=== PATIENT | female | born 1985 | race Asian ===

== ENCOUNTER 2016-11-18 14:53 | Emergency (ER) | payer OTHER ==
[~2016-11-18] VITALS: Ht 162.6 cm; Wt 72.5 kg
[2016-11-18 14:58] VITALS: Ht 162.6 cm; Wt 72.5 kg
[2016-11-18] MEDS ORDERED: CETI10CA PO (15:16)
[2016-11-18] MEDS ORDERED: PRED20TA PO (15:16)
[2016-11-18] MEDS ORDERED: BEN25 PO (15:16)
--- NOTE | 2016-11-18 15:21 | ERA ---
ER Documentation Chief Complaint Date/Time DATE: 11/18/16 TIME: 15:17 Chief Complaint GENERALIZED RASH WITH WELTS X 3 DAYS HPI Patient is a 31-year-old female who presents to the emergency department with a generalized rash throughout her body. Patient states rash started 3 days ago after going out to eat dinner at [employer]. Patient is unsure if she ate something at the restaurant. Patient states that she also started using a new body wash approximately 1 week ago. Patient has been taking Benadryl which does help with her symptoms. Patient describes a rash to be erythematous, circular and throughout her body. Patient reports that the rash is itchy. Patient denies any throat swelling, tongue swelling, lip swelling, fever, chills , nausea, vomiting, loss consciousness. She denies any chest pain or shortness of breath. ROS All systems reviewed and are negative except as per history of present illness. Medications Home Meds Active Scripts Diphenhydramine Hcl* (Benadryl*) 25 Mg Cap, 25 MG PO Q6, #30 CAP Prov:LAVON COX PA-C 11/18/16 Cetirizine Hcl* (Zyrtec*) 10 Mg Capsule, 10 MG PO DAILY, #20 TAB.CHEW Prov:LAVON COX PA-C 11/18/16 Prednisone* (Prednisone*) 20 Mg Tab, 40 MG PO DAILY for 5 Days, TAB Prov:LAVON COX PA-C 11/18/16 Allergies Allergies: Coded Allergies: No Known Allergy (Unverified , 08/04/14) PMhx/Soc Medical and Surgical Hx: pt denies Medical Hx, pt denies Surgical Hx History of Surgery: No Anesthesia Reaction: No Hx Neurological Disorder: No Hx Respiratory Disorders: No Hx Alcohol Use: No Hx Substance Use: No Hx Tobacco Use: No Smoking Status: Never smoker Physical Exam Vitals Vital Signs Date Time Temp Pulse Resp B/P Pulse Ox O2 Delivery O2 Flow Rate FiO2 11/18/16 14:58 99.0 88 16 144/92 99 Physical Exam GENERAL: Well-developed, well-nourished female. Appears in no acute distress. Begin full sentences HEAD: Normocephalic, atraumatic. No deformities or ecchymosis. EYE: Pupils equal, round, and reactive to light. EOMs intact. No conjunctival erythema. No eye discharge. ENT: External ear without any masses or tenderness. Auditory canals clear bilaterally. TM visualized bilaterally, non-erythematous, non-bulging. Nasal mucosa pink with no discharge. Oropharynx is pink without any tonsillar erythema or exudates. No uvula deviation. No kissing tonsils. No lip swelling, no tongue swelling, no throat swelling. NECK: Supple. No meningismus. Normal ROM of the neck. LUNG: Clear to auscultation bilaterally. No rhonchi, wheezing, rales or coarse breath sounds. No stridor. HEART: Regular rate and rhythm. No murmurs, rubs or gallops. BACK: No midline tenderness. EXTREMITES: Equal pulses bilaterally. No peripheral clubbing, cyanosis or edema. No unilateral leg swelling. NEUROLOGIC: Alert and oriented to person, place and time. Moving all four extremities. 5/5 strength in all extremities. Normal speech. Steady gait. SKIN: Normal color. Warm and dry. Erythematous, urticarial-like rash noted throughout the patient's upper arms, abdomen, upper legs. Procedures/MDM MEDICAL DECISION MAKING: This is a 31-year-old female presents with a generalized body rash 3 days. Vital signs were reviewed. Patient was afebrile. Patient is not diabetic. Skin exam revealed urticarial rash throughout the patient's body. She denies any lip swelling, tongue swelling, throat swelling or difficulty breathing. Patient was speaking in full sentences. Given these findings, the patient's presentation is most consistent with allergic reaction and hives. I have a much lower clinical concern for necrotizing fasciitis, sepsis, gangrene, Jordan- Ariel syndrome, toxic epidural necrolysis, abscess, cellulitis, herpes zoster , viral exanthem, anaphylaxis, fungal infection, insect bite, impetigo, dermatitis. PRESCRIPTIONS: Prednisone, Zyrtec, Benadryl DISCHARGE: At this time, patient is stable for discharge and outpatient management. I have advised the patient to avoid any new products, creams or possible allergens. I have advised the patient to avoid scratching the lesions. I have instructed the patient to follow-up with his/her primary care physician in 1-2 days. If symptoms persist, patient may need to see a echocardiograph tech for further examinations and testing. I have instructed the patient to promptly return to the ER at any time for any new or worsening symptoms including increased pain, fever, redness, swelling, warmth, difficulty breathing or vomiting. The patient and/or family expressed understanding of and agreement with this plan. All questions were answered. Home care instructions were provided. Departure Diagnosis: Primary Impression: Rash Condition: Stable Patient Instructions: Self-Care for Skin Rashes Referrals: DOCTOR,NOT ON STAFF (PCP) Additional Instructions: Call your primary care doctor TOMORROW for an appointment during the next 1-2 days.See the doctor sooner or return here if your condition worsens before your appointment time. Return the emergency department for any shortness of breath, chest tightness, throat swelling, lip swelling, tongue swelling or loss of consciousness. LAVON COX PA-C Nov 18, 2016 15:21
== END 2016-11-18 15:56 | disposition home or self-care (01) ==
LOC: FTE 14:53
DX: R21 Rash and other nonspecific skin eruption (principal)
CPT/HCPCS: 99283

== ENCOUNTER 2017-08-04 08:05 | Emergency (ER) | payer OTHER ==
[~2017-08-04] VITALS: Wt 76.7 kg
[~2017-08-04 08:05] MED LIST: BEN25 PO; CETI10CA PO; PRED20TA PO
[2017-08-04] MEDS ORDERED: IBUPROFEN 600 MG TAB PO ONE (08:30)
--- NOTE | 2017-08-04 08:36 | RADRPT ---
PROCEDURE: XR Chest. CLINICAL INDICATION: Cough, fever, chest pain TECHNIQUE: Single frontal view of the chest was obtained COMPARISON: None FINDINGS: The heart and mediastinum are within normal limits. The lungs are clear. There is no pleural effusion or pneumothorax. The bones and soft tissue show no acute change. IMPRESSION: No definite abnormalities are identified. RPTAT:AAJJ Physician Reji Date Time Electronically viewed and signed by Christiano Pacheco Physician on 08/04/2017 08:35 /
--- NOTE | 2017-08-04 08:41 | ERD ---
ER Documentation Chief Complaint Chief Complaint FLU-LIKE SYMPTOMS, ONSET 2 DAYS HPI 32-year-old female comes in with 2 day history of cough, sore throat, nasal congestion and headache. The patient reports that she has had a productive cough, sore throat, nasal rhinorrhea with a frontal headache. She describes her symptoms to wax and wane and also reports pleuritic chest pain in the center. She states that the pain is sharp, notices when she takes a deep breath in or out, or when she is coughing. She has not had any syncope, and dizziness, shortness of breath. ROS All systems reviewed and are negative except as per history of present illness. Medications Home Meds Active Scripts Oseltamivir Phosphate* (Tamiflu*) 75 Mg Capsule, 75 MG PO BID for 5 Days, CAP Prov:BATOOL IYER PA-C 08/04/17 Guaifenesin/Codeine Phosphate (CHERATUSSIN AC SYRUP) 118 Ml Liquid, 5 ML PO Q4H Y for COUGH, #118 ML Prov:BATOOL IYER PA-C 08/04/17 Cetirizine Hcl* (Zyrtec*) 10 Mg Capsule, 10 MG PO DAILY, #10 TAB.CHEW Prov:BATOOL IYER PA-C 08/04/17 Fluticasone Propionate (Flonase Allergy Relief) 9.9 Ml [place].susp, 1 SPRAY NASAL BID, #1 BOTTLE TO EACH NOSTRIL Prov:BATOOL IYER PA-C 08/04/17 Ibuprofen* (Motrin*) 600 Mg Tab, 600 MG PO Q6, #30 TAB Prov:BATOOL IYER PA-C 08/04/17 Diphenhydramine Hcl* (Benadryl*) 25 Mg Cap, 25 MG PO Q6, #30 CAP Prov:LAVON COX PA-C 11/18/16 Cetirizine Hcl* (Zyrtec*) 10 Mg Capsule, 10 MG PO DAILY, #20 TAB.CHEW Prov:LAVON COX PA-C 11/18/16 Prednisone* (Prednisone*) 20 Mg Tab, 40 MG PO DAILY for 5 Days, TAB Prov:LAVON COX PA-C 11/18/16 Allergies Allergies: Coded Allergies: No Known Allergy (Unverified , 08/04/14) PMhx/Soc Medical and Surgical Hx: pt denies Medical Hx, pt denies Surgical Hx History of Surgery: No Anesthesia Reaction: No Hx Neurological Disorder: No Hx Respiratory Disorders: No Hx Alcohol Use: No Hx Substance Use: No Hx Tobacco Use: No Physical Exam Vitals Vital Signs Date Time Temp Pulse Resp B/P Pulse Ox O2 Delivery O2 Flow Rate FiO2 08/04/17 09:27 101.0 100 08/04/17 08:47 103.2 118 22 97 Room Air 08/04/17 08:07 101.6 111 18 137/81 98 Physical Exam General: Well-developed, well-nourished. The patient appears in no acute distress. HEENT: Head is normocephalic, atraumatic. No scleral icterus. Pupils are equal , round, and reactive. Oral mucous membranes are moist. No pharyngeal erythema. Neck: Supple. Nontender. Lungs: Clear to auscultation. Normal air movement. Patient has sternal chest pain with chest wall palpation. Heart: Regular rate and rhythm. S1 and S2 are normal. No murmurs, gallops, or rubs. Abdomen: Soft, nontender, nondistended. Bowel sounds are normoactive. Extremities: No clubbing or cyanosis. Normal pulses. Moving extremities x 4. No weakness. Neurologic: Alert and oriented 3. No focal deficits. Skin: Normal turgor. No rash or lesions. Results 24 hrs Current Medications Medications (Trade) Dose Ordered Sig/Randy Route PRN Reason Start Time Stop Time Status Last Admin Dose Admin Ibuprofen (Motrin) 600 mg ONCE ONCE PO 08/04/17 08:30 08/04/17 08:31 DC 08/04/17 08:18 Acetaminophen (Tylenol Tab) 1,000 mg ONCE STAT PO 08/04/17 08:46 08/04/17 08:47 DC 08/04/17 08:51 Chest X-ray 1V Interpreted by me as well as radiologist: Soft Tissue: No acute abnormalities Bones: No acute abnormalities Mediastinum/Cardiac Silhouette/Lungs: No acute abnormalities Procedures/MDM The patient is a 32-year-old female who comes in with a viral syndrome. The patient has a fever, cough, sore throat, chest x-ray is normal. The chest pain is reproduced when I palpate over chest wall, without pneumonia, pneumothorax, osteomyelitis, endocarditis, myocarditis, pericarditis. The patient has a differential diagnosis of a viral upper respiratory infection, bacterial upper respiratory infection, bronchitis, pneumonia, pharyngitis, laryngitis, epiglottitis, croup, pneumonia. Patient has a normal pulmonary examination, clear breath sounds, normal pulse oximetry, with no corrective measures needed at this time. Fluids, rest, antipyretics were encouraged. Departure Diagnosis: Primary Impression: Influenza-like symptoms Condition: Good BATOOL IYER PA-C Aug 04, 2017 08:41
[2017-08-04] MEDS ORDERED: FLUT9.9S NASAL (08:42)
[2017-08-04] MEDS ORDERED: GUAI118L22 PO (08:42)
[2017-08-04] MEDS ORDERED: IBUP-1542 PO (08:42)
[2017-08-04] MEDS ORDERED: CETI10CA PO (08:42)
[2017-08-04] MEDS ORDERED: ACETAMINOPHEN 500 MG TAB PO STA (08:46)
[2017-08-04 08:47] VITALS: RESP 22
[2017-08-04] MEDS ORDERED: OSLT75C PO (09:15)
[2017-08-04 09:27] VITALS: PULSE 100; TEMP 101
== END 2017-08-04 09:28 | disposition home or self-care (01) ==
LOC: FTE 08:05
DX: B34.9 Viral infection, unspecified (principal)
CPT/HCPCS: 71010; Z7502; Z7610

== ENCOUNTER 2018-04-02 14:25 | Emergency (ER) | END 2018-04-02 18:14 | disposition home or self-care (01) ==